=== PATIENT | female | born 1965 | race Caucasian/White ===

== ENCOUNTER 2018-01-07 21:00 | Emergency (ER) | payer OTHER ==
[~2018-01-07] VITALS: Ht 165.1 cm; Wt 84.1 kg
[2018-01-07 21:13] VITALS: BP 124/81
== END 2018-01-08 00:01 | disposition home or self-care (01) ==
LOC: EXP 21:00 → EME 21:00 → EXP 01-08 00:01
DX: J45.901 Unspecified asthma with (acute) exacerbation (principal); Z87.891 Personal history of nicotine dependence
CPT/HCPCS: 71046; 99281; 99283